=== PATIENT | male | born 1940 | race Caucasian/White ===

== ENCOUNTER → 2016-05-07 | Outpatient (CLI) | payer MEDICARE ==
--- NOTE | 2016-05-07 15:07 | XR ---
EXAMINATION TYPE: XR chest 2V DATE OF EXAM: 05/07/2016 3:02 PM COMPARISON: Chest x-ray November 30, 2012 and more recent study March 09, 2016 HISTORY: Cough. TECHNIQUE: Frontal and lateral views of the chest are obtained. FINDINGS: There is some chronic parenchymal change without suspicious focal air space opacity, pleur al effusion, or pneumothorax seen. The cardiac silhouette size is within normal limits with atherosc lerotic aorta. The osseous structures are somewhat demineralized slight scoliotic curvature and mul tilevel spurring and spine redemonstrated IMPRESSION: Chronic emphysematous change without acute pulmonary process. No significant change from prior studies.
== END | disposition home or self-care (01) ==
LOC: RADXRMAIN 14:49
PROVIDERS: ATTEND Internal Medicine
DX: J43.9 Emphysema, unspecified (principal)
CPT/HCPCS: 71020

== ENCOUNTER → 2018-01-20 | Outpatient (CLI) | payer MEDICARE, OTHER ==
--- NOTE | 2018-01-20 11:48 | XR ---
EXAMINATION TYPE: XR ankle complete LT DATE OF EXAM: 01/20/2018 COMPARISON: NONE HISTORY: Pain FINDINGS: Three views of the ankle demonstrate the ankle mortise to be intact and symmetric. The joint spaces are preserved. The osseous structures are intact. Diffuse soft tissue edema. Hypertrophic changes i nvolving the calcaneus. IMPRESSION: 1. No definite acute fracture or dislocation, if symptoms persist follow-up study in 7 to 10 days wou ld be suggested.
--- NOTE | 2018-01-20 11:49 | XR ---
EXAMINATION TYPE: XR foot complete LT DATE OF EXAM: 01/20/2018 COMPARISON: NONE HISTORY: Pain TECHNIQUE: Three views are submitted. FINDINGS: The osseous structures are intact. There is no acute fracture or dislocation. Arthropathy of the f irst MTP joint noted. Calcaneal spur noted. Hammertoe deformities seen. Diffuse soft tissue edema. IMPRESSION: 1. No acute fracture or dislocation. If symptoms persist, follow-up exam in 7 to 10 days could be ob tained.
== END | disposition home or self-care (01) ==
LOC: RADXRMAIN 10:58
PROVIDERS: ATTEND Internal Medicine
DX: M25.572 Pain in left ankle and joints of left foot (principal); S99.912A Unspecified injury of left ankle, initial encounter; S99.922A Unspecified injury of left foot, initial encounter

== ENCOUNTER 2018-08-12 06:30 | Day surgery (SDC) | payer MEDICARE ==
[2018-08-08 14:34] VITALS: BMI 31.5
[~2018-08-12 06:30] MED LIST: LACTATED RINGERS 1,000 ML IV SCH
[2018-08-12 07:06] VITALS: RESP 14; TEMP 98.3
[2018-08-12 07:20] LABS: Glucose,Whole Blood 143 mg/dL (75-99)
[2018-08-12] MEDS ORDERED: PROPOFOL 10 MG/ML 20 ML VIAL IV ONE (07:43)
--- NOTE | 2018-08-12 08:16 | P.PCN ---
Date of Procedure: 08/12/18 Procedure(s) Performed: Procedure: Total colonoscopy. Preoperative diagnosis: Screening for neoplasia. Postoperative diagnosis: Sigmoid diverticulosis with no evidence of acute diverticulitis, strictures, polyps or cancer. Preparation: HalfLytely prep. Sedation: Was provided by anesthesia. Brief clinical history: The patient is a 78-year-old male who is scheduled for this evaluation for screening for neoplasia age being his risk factor. He had a prior exam 10 to 15 years ago. No history of polyps or family history of colon cancer. He has no abdominal complaints, bleeding or anemia. Procedure: With the patient on his left lateral decubitus position and after informed consent and adequate sedation, the perianal area was inspected and it did not show any fissures or fistulas. There were no masses felt on digital rectal examination. The Olympus CFH 190L video colonoscope was then inserted in the rectum in the usual fashion and advanced to the cecum. There were multiple diverticular orifices seen scattered in the sigmoid with no evidence of acute diverticulitis or strictures. The mucosa appeared healthy. No polyps or tumors were seen. I retroflexed the endoscope in the rectum before the endoscope was withdrawn. The patient tolerated the procedure well. Plan: The patient was reassured. Discussed dietary measures. He will follow up with you as planned. At his age, I did not recommend future screening. He will discuss that with you.
[2018-08-12 08:29] VITALS: BP 148/81; PULSE 77
== END 2018-08-12 08:58 | disposition home or self-care (01) ==
LOC: ORWHC2ENDO 06:30
DX: Z12.11 Encounter for screening for malignant neoplasm of colon (principal); I10 Essential (primary) hypertension; E11.9 Type 2 diabetes mellitus without complications; E78.5 Hyperlipidemia, unspecified; M19.90 Unspecified osteoarthritis, unspecified site; F17.210 Nicotine dependence, cigarettes, uncomplicated; Z79.84 Long term (current) use of oral hypoglycemic drugs; Z79.899 Other long term (current) drug therapy; Z88.8 Allergy status to other drugs, medicaments and biological substances
CPT/HCPCS: J2704; G0121

== ENCOUNTER → 2019-04-27 | Outpatient (CLI) | payer MEDICARE ==
--- NOTE | 2019-04-27 12:24 | XR ---
EXAMINATION TYPE: XR shoulder complete RT DATE OF EXAM: 04/27/2019 CLINICAL HISTORY: Pain after lifting injury. TECHNIQUE: Three views of the right shoulder are obtained. COMPARISON: Right shoulder x-ray November 30, 2012. FINDINGS: There is no acute fracture/dislocation evident in the right shoulder. Mild to moderate shaka rowing and spurring of the acromioclavicular joint. Distal acromion morphology unremarkable. Mild to moderate narrowing glenohumeral joint. The visualized ribs are intact and unremarkable. IMPRESSION: There is no acute fracture or dislocation in the right shoulder.
== END | disposition home or self-care (01) ==
LOC: RADXRMAIN 11:58
PROVIDERS: ATTEND Internal Medicine
DX: M25.511 Pain in right shoulder (principal)

== ENCOUNTER → 2019-05-14 | Outpatient (CLI) | payer MEDICARE ==
--- NOTE | 2019-05-14 09:51 | MR ---
EXAMINATION TYPE: MR shoulder RT wo con DATE OF EXAM: 05/14/2019 COMPARISON: X-ray 04/27/2019 HISTORY: Right TECHNIQUE: Multiplanar, multisequence imaging of the right shoulder is performed without contrast. FINDINGS: Exam limited by severe patient motion artifact. There is a small glenohumeral joint effusion. Thicken ing of the inferior glenohumeral ligament appears chronic. Reduced definition of the humeral attachme nt likely is artifactual. Bicipital tendon well situated the bicipital groove. Intracapsular portion of the biceps tendon is in tact. There is arthropathy of the AC joint with impingement supraspinatus tendon and muscle. Along the burs al surface there is scuffing of the supraspinatus and infraspinatus tendons. No through thickness tea r or retraction. Next Intrasubstance signal of the superior labrum suspicious for tear. IMPRESSION: 1. Markedly limited exam due to motion artifact demonstrates impingement and tendinosis of the supras pinatus and infraspinatus tendons with no definite through thickness tear or retraction. 2. SLAP tear
== END | disposition home or self-care (01) ==
LOC: RADMRIMAIN 08:34
PROVIDERS: ATTEND Internal Medicine
DX: S43.431A Superior glenoid labrum lesion of right shoulder, initial encounter (principal); M77.9 Enthesopathy, unspecified

== ENCOUNTER → 2019-09-18 | Outpatient (CLI) | payer MEDICARE ==
[2019-09-18 10:41] LABS: HCT 42.7 % (39.0-53.0); HGB 13.9 gm/dL (13.0-17.5); MCH 30.3 pg (25.0-35.0); MCHC 32.5 g/dL (31.0-37.0); MCV 93.2 fL (80.0-100.0); Mean Platelet Volume 7.7; Platelet Count 340 k/uL (150-450); RBC 4.58 m/uL (4.30-5.90); RDW 13.8 % (11.5-15.5); WBC 8.6 k/uL (3.8-10.6)
[2019-09-18 15:29] LABS: African American GFR (CKD) 99.2 (60.0-200.0); Anion Gap 8.7 mmol/L (4.00-12.00); Carbon Dioxide 29.3 mmol/L (21.6-31.8); Non-African American GFR(CKD) 85.6 (60.0-200.0); Potassium 4.4 mmol/L (3.5-5.5)
== END | disposition home or self-care (01) ==
LOC: LABWHC1 09:21
PROVIDERS: ATTEND Internal Medicine Interventional Cardiology
DX: Z01.818 Encounter for other preprocedural examination (principal); I35.0 Nonrheumatic aortic (valve) stenosis; Z11.59 Encounter for screening for other viral diseases
CPT/HCPCS: 36415; 80051; 82565; 84520; 85027; 87635

== ENCOUNTER 2019-09-22 06:00 | Day surgery (SDC) | payer MEDICARE ==
[2019-09-16 16:17] VITALS: BMI 27.5
[~2019-09-22 06:00] MED LIST changes: +ALPRAZolam 0.25 MG TAB PO PRN; +ALPRAZolam 0.5 MG TAB PO PRN; -LACTATED RINGERS 1,000 ML IV SCH; +NITROGLYCERIN SL TABS 0.4 MG TAB SUBLINGUAL PRN; +SODIUM CHLORIDE 0.9% 1,000 ML in EMPTY BAG 1 BAG IV ONE
[2019-09-22 06:30] LABS: Glucose,Whole Blood 175 mg/dL (75-99)
[2019-09-22] MEDS ORDERED: fentaNYL (PF) 50 MCG/ML 2 ML AMP ONE (06:48)
[2019-09-22] MEDS ORDERED: ASPIRIN 325 MG TAB PO ONE (07:00)
[2019-09-22] MEDS: BENZOCAINE SPRAY 1 CAN TOPICAL ONE ×3 (07:02→07:28)
[2019-09-22] MEDS ORDERED: SODIUM CHLORIDE 0.9% 1,000 ML IV ONE (07:06)
[2019-09-22] MEDS ORDERED: MIDAZOLAM 2 MG/2 ML VIAL IVP ONE (07:08)
[2019-09-22] MEDS ORDERED: fentaNYL (PF) 50 MCG/ML 2 ML AMP IVP ONE (07:08)
[2019-09-22] MEDS ORDERED: LIDOCAINE 1% INJ 10MG/ML (20 ML MDV) ONE (07:14)
[2019-09-22] MEDS ORDERED: VERAPAMIL 2.5 MG/ML 2 ML AMP ONE (07:39)
[2019-09-22] MEDS ORDERED: LIDOCAINE 1% INJ 10MG/ML (20 ML MDV) SQ ONE (07:52)
[2019-09-22] MEDS ORDERED: VERAPAMIL SYRINGE (5 MG/10 ML) INTRAARTER ONE (07:56)
[2019-09-22] MEDS ORDERED: HEPARIN SODIUM 1,000 UN/ML (10ML VL) IV ONE (08:08)
[2019-09-22] MEDS ORDERED: CLOPIDOGREL 75 MG TAB ONE (08:09)
[2019-09-22] MEDS ORDERED: CLOPIDOGREL 75 MG TAB PO ONE (08:11)
[2019-09-22] MEDS ORDERED: IOPAMIDOL-370 125ML BTL INJ ONE (08:23)
[2019-09-22] MEDS ORDERED: IOPAMIDOL-370 100ML BTL INJ ONE (08:45)
[2019-09-22] MEDS ORDERED: ATROPINE SULFATE 0.1 MG/ML 10ML SYRINGE IV PRN (08:55)
[2019-09-22] MEDS ORDERED: ZOLPIDEM 5 MG TAB PO PRN (08:55)
[2019-09-22] MEDS ORDERED: MAG HYDROX/AL HYDROX/SIMETH 30 ML CUP PO PRN (08:55)
[2019-09-22] MEDS ORDERED: RX INFO: IV CONTRAST WAS GIVEN 1 EACH MISC MISCELLANE PRN (08:55)
[2019-09-22] MEDS ORDERED: NITROGLYCERIN SL TABS 0.4 MG TAB SUBLINGUAL PRN (08:55)
[2019-09-22] MEDS ORDERED: SODIUM CHLORIDE 0.9% 1,000 ML IV SCH (09:00)
--- NOTE | 2019-09-22 09:40 | ECHOT ---
TRANSESOPHAGEAL ECHOCARDIOGRAM INDICATION: Evaluation of aorta. PROCEDURE: After explaining the procedure to the patient, its risks and the complications, his blood pressure, heart rate, O2 saturation was monitored. The throat was sprayed with Cetacaine. He received 2 mg intravenous Versed, 50 mcg intravenous fentanyl. The probe was in the esophagus without difficulty. Images were obtained. Following that, the probe was removed there was no immediate complication. FINDINGS: Left atrial size is mildly dilated. Left atrial appendage is normal. Left ventricular size and systolic function are normal. The aortic valve is a tricuspid valve calcified with reduced opening by planimetry the valve area is 1.2 cm2. The mitral valve revealed mild calcification. Tricuspid valve is normal , descending thoracic aorta revealed mild atherosclerotic changes. No pericardial effusion was noted . Contrast bubble study revealed no shunting across the interatrial septum with Valsalva maneuver. Doppler pulse wave and color Doppler obtained and revealed a mild to moderate mitral with mild tricuspid and aortic regurgitation. The peak gradient across the aortic valve was 74 mmHg with a mean of 61 mmHg .No shunting by color Doppler study was noted. CONCLUSION: 1. Normal size LV and systolic function. 2. Dilated left atrium. 3. Severe aortic stenosis with mild aortic regurgitation. 4. Mild to moderate mitral with mild tricuspid regurgitation. 5. 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 6. Mild atherosclerotic changes of the descending thoracic aorta. MMODL / IJN: [id number] / MAUREEN
--- NOTE | 2019-09-22 10:52 | CC ---
CARDIAC CATHETERIZATION REPORT Mr. Garcia is a 79-year-old male with known history of hypertension, hyperlipidemia, diabetes mellitus and chronic tobacco use. He has been complaining of progressive dyspnea on exertion. He was found to have evidence of significant aortic stenosis. In view of that, recommendation made regarding cardiac catheterization. The procedures, risks, and complication were discussed with the patient who is in full understanding and agreement. PROCEDURE: Patient was brought to cathode ray tube assembler in the fasting semi-sedated state after receiving fentanyl and Benadryl and achieving moderate conscious sedated state. Using Xylocaine anesthesia and Seldinger technique, a 6-Finnish sheath was introduced in the right radial artery. Attempt to exchange the right brachial Angiocath over a wire were unsuccessful because of a kink in the angiocath that was removed and pressures were deployed. Following that, selective right and left coronary angiography performed using 5-Finnish 3.5 bend right and left Kal catheter. Multiple views of the coronary artery including hemiaxial views were obtained. The right Kal catheter was used to cross the aortic valve and left ventricular end-diastolic pressure was calculated. Following that, catheter were removed, images were reviewed. FLUOROSCOPY: There was significant calcification involving the aortic valve as well as the right coronary artery. LEFT MAIN: This is a large-sized vessel, bifurcating into left circumflex, left insular artery. Left main coronary artery has no evidence of high-grade stenosis. LEFT ANTERIOR DESCENDING ARTERY: This is a large-sized vessel, reaching toward the apex with a wraparound apex segment. Giving rise to a large diagonal branch. Left anterior descending artery after the diagonal branch has a calcified segment with about 30% plaque. The rest of the vessel has no high-grade stenosis. LEFT CIRCUMFLEX: This is a nondominant vessel, moderate in caliber, giving rise to three obtuse marginal branch of moderate caliber. The first one is very proximal. The left circumflex as well as branches have no evidence of obstructive coronary artery disease. RIGHT CORONARY ARTERY: This is a large dominant vessel, bifurcating distally into PDA and posterolateral segment and branches. The right coronary artery in mid segment has a 30% to 40% stenosis and a larger PLV that has a 90% stenosis. The rest of the vessel has no high-grade stenosis. LEFT VENTRICULOGRAM: Left ventricular was not performed. HEMODYNAMICS: The left ventricular end-diastolic pressure was 10-14 mmHg. Left ventricle arm systolic pressure was 180. An ascending aortic systolic pressure was 140 with a peak gradient of 40 mmHg. CONCLUSION: 1. Calcified aortic valve and coronary artery. 2. Significant obstructive disease involving the large right PLV. 3. Mild to moderate disease in the mid LAD. RECOMMENDATION: In view of the finding anatomy, I recommend proceeding with angioplasty and stenting of the right PLV and subsequently evaluate the patient for transaortic valve replacement. Those findings and recommendation were discussed with the patient, who is in full understanding and agreement. MMODL / IJN: [id number] /
[2019-09-22] MEDS ORDERED: HYDROmorphone 1 MG/ML 1 ML SYRINGE ONE (15:34)
--- NOTE | 2019-09-22 15:38 | PTCA ---
PERCUTANEOUSTRANS CORORONARY ANGIOGRAPHY Mr. Garcia is a 79-year-old male with a known history of hypertension, hyperlipidemia, diabetes mellitus, who had evidence of aortic stenosis, underwent cardiac catheterization, was found to have critical stenosis involving the large right PLV. Recommendation made regarding angioplasty and stenting. The procedures, risks, and complication were discussed with the patient who is in full understanding and agreement. PROCEDURE: A 6-Surinamese FR4 guiding catheter introduced into the system, after cannulating the right coronary ostium, a 0.014 balanced medium weight J-wire was advanced across the lesion, positioned distally in the right PLV. Subsequently, a 3.0 x 12 mm Trek balloon was advanced and one inflation at 10 atmospheres was done. Following that, a 3.5 x 18 mm Xience Melinda stent was deployed, post dilated at 16 atmospheres after the last inflation, after appropriate wait, the balloon and the guidewire were withdrawn back in the guiding catheter. Images were obtained and repeated. Those images reveal stable successful stenting. At that point, the guiding catheter, the balloon and the guidewire were removed. The sheath was removed. Hemostasis was obtained from a TR band. There was no immediate complication. Patient was returned to his room in stable condition. Of note, the patient had no chest discomfort, but he had mild EKG changes that resulted in procedure. He received a total of 8000 units of intravenous heparin as well as intra-arterial verapamil. His ACT was followed. RESULTS: Successful stenting of the large right PLV with reduction of stenosis from 90% to 0%. RECOMMENDATION: Patient will be continued on aspirin, Plavix and statin. The importance of dual antiplatelet treatment were discussed with the patient and his family and they are in full understanding and agreement. The patient will be evaluated for transaortic valve replacement. Those findings and recommendation were discussed with the patient and his family who are in full understanding and agreement. DURATION OF PROCEDURE: 46 minutes. MMODL / IJN: [id number] /
--- NOTE | 2019-09-22 15:44 | LTR ---
DATE OF SERVICE: 09/22/2019 RE: Kenny Torre Dear Dr. Peng; I had the pleasure to perform cardiac catheterization and transesophageal echocardiogram on Mr. Gracia at [facility] on September 22, 2019 and a fully copy of the procedure note will be forwarded to you. In brief, he was found to have severe aortic stenosis with critical stenosis involving the right PLV. He underwent successful stenting of his right PLV using a drug-eluting stent and he will be evaluated down the road to undergo transaortic valve replacement. I will keep you updated on his progress and thank you again for allowing me to participate in this patient's care. Please feel free to call for any questions. Sincerely yours, MD GARRET Hendrix / BRYAN: [id number] /
[2019-09-22] MEDS ORDERED: amLODIPine 5 MG TAB PO SCH (17:30)
[2019-09-22 17:47] LABS: Glucose,Whole Blood 193 mg/dL (75-99)
[2019-09-22] MEDS: Rosuvastatin Calcium [Crestor] 5 MG PO SCH (19:42)
[2019-09-22] MEDS: MULTIVITAMINS, THERA 1 EACH TAB PO SCH (19:42)
[2019-09-22 20:34] LABS: Glucose,Whole Blood 126 mg/dL (75-99)
[2019-09-22] MEDS ORDERED: LISINOPRIL 20 MG TAB PO SCH (21:00)
[2019-09-22] MEDS: NICOTINE 21MG/24HR PATCH TRANSDERM SCH (21:28)
[2019-09-23 05:51] VITALS: RESP 16
[2019-09-23 06:09] LABS: Glucose,Whole Blood 130 mg/dL (75-99)
[2019-09-23 08:00] LABS: African American GFR (CKD) >90 (>60 ml/min/1.73 sqM); Anion Gap 5 mmol/L; Blood Urea Nitrogen 11 mg/dL (9-20); Carbon Dioxide 27 mmol/L (22-30); Chloride 103 mmol/L (98-107); Glucose 137 mg/dL (74-99); Non-African American GFR(CKD) >90 (>60 ml/min/1.73 sqM); Potassium 4.2 mmol/L (3.5-5.1); Sodium 135 mmol/L (137-145)
[2019-09-23 08:32] VITALS: BP 117/65; PULSE 76; TEMP 97.6
[2019-09-23] MEDS: Rosuvastatin Calcium [Crestor] 5 MG PO SCH (08:38)
[2019-09-23] MEDS: MULTIVITAMINS, THERA 1 EACH TAB PO SCH (08:38)
[2019-09-23] MEDS: NICOTINE 21MG/24HR PATCH TRANSDERM SCH (08:38)
[2019-09-23] MEDS ORDERED: CLOPIDOGREL 75 MG TAB PO SCH (09:00)
[2019-09-23] MEDS ORDERED: ASPIRIN 81 MG PO SCH (09:00)
--- NOTE | 2019-09-23 09:26 | PN ---
PROGRESS NOTE Mr. Garcia is a 79-year-old male with known history of diabetes, hypertension, hyperlipidemia, who was found to have severe aortic stenosis, underwent cardiac catheterization yesterday, was found to have severe stenosis in a large right PLV and underwent stenting of that vessel. He is doing well this morning, denying any chest pain, his breathing has been stable. He denies any dizziness or palpitation. He continues on aspirin once a day, Plavix 75 mg daily, lisinopril 40 mg daily, rosuvastatin 5 mg daily, amlodipine 5 mg daily. PHYSICAL EXAMINATION: Blood pressure 129/60 with a heart rate in the 70s. LUNGS: Clear. HEART: Regular rate and rhythm, S1, S2. No S3 with systolic ejection murmur, 3/6 heard at the base, no diastolic murmur, no rub. ABDOMEN: Soft, nontender. EXTREMITIES: No edema. Right radial pulse intact. EKG revealed no acute changes. IMPRESSION: 1. Coronary disease with stenting of the right PLV. 2. Severe aortic stenosis. 3. Hypertension. 4. Hyperlipidemia. 5. Diabetes mellitus. 6. History of chronic tobacco use. RECOMMENDATION: Patient will be discharged home today and followed as an outpatient for evaluation for transaortic valve replacement. MMODL / IJN: [id number] /
[2019-09-28] MEDS ORDERED: ERGOCALCIFEROL 50,000 UNIT CAP PO SCH (09:00)
== END 2019-09-23 09:26 | disposition home or self-care (01) ==
LOC: CATHCVL 06:00 → 3SCARD 08:38 → CATHCVL 09-23 09:26
PROVIDERS: ATTEND Internal Medicine Interventional Cardiology
DX: I25.10 Atherosclerotic heart disease of native coronary artery without angina pectoris (principal); I08.2 Rheumatic disorders of both aortic and tricuspid valves; I25.3 Aneurysm of heart; I70.0 Atherosclerosis of aorta; I10 Essential (primary) hypertension; E78.2 Mixed hyperlipidemia; E11.9 Type 2 diabetes mellitus without complications; Z87.891 Personal history of nicotine dependence; Z95.5 Presence of coronary angioplasty implant and graft; Z79.82 Long term (current) use of aspirin; Z79.02 Long term (current) use of antithrombotics/antiplatelets; Z79.899 Other long term (current) drug therapy; Z88.8 Allergy status to other drugs, medicaments and biological substances; M19.90 Unspecified osteoarthritis, unspecified site; Z98.890 Other specified postprocedural states; Z98.49 Cataract extraction status, unspecified eye
CPT/HCPCS: 93312; 93320; 93325; 93458; 85347; 80048; C9600; C1769 ×3; C1887; C1725; C1751; C1874; C1894; S4990 ×2; J2250; J2001; J3010; J1644; Q9967 ×2

== ENCOUNTER 2022-02-22 21:27 | Inpatient (IN) | payer MEDICARE ==
--- NOTE | 2022-02-22 21:36 | ED ---
Altered Mental Status HPI - General Stated Complaint: Altered Mental Status Time Seen by Provider: 02/22/22 21:34 Source: RN notes reviewed, old records reviewed, Caregiver Mode of arrival: EMS Limitations: altered mental status, physical limitation - History of Present Illness Initial Comments: This is an 81-year-old male DF for evaluation patient is a poor strain secondary to clinical state was apparently acting normal yesterday per family today patient has not been breathing well and been altered patient was found to be significantly hypoxic by EMS patient is a poor strain again to clinical state. History of presented by EMS and patient's family MD Complaint: altered mental status, confusion, decreased responsiveness, weakness -: unknown Severity: moderate Consistency of Symptoms: getting worse Context: COPD Associated Symptoms: cough, malaise, shortness of breath, weakness Treatments Prior to Arrival: oxygen - Related Data Home Medications Medication Instructions Recorded Confirmed Aspirin [Adult Low Dose Aspirin EC] 81 mg PO DAILY 08/08/18 09/22/19 Ergocalciferol (Vitamin D2) 50,000 unit PO MO 08/08/18 09/22/19 [Vitamin D2] Multivit-Min/FA/Lycopen/Lutein 1 each PO DAILY 08/08/18 09/22/19 [Centrum Silver Tablet] Rosuvastatin Calcium [Crestor] 5 mg PO QAM 08/08/18 09/22/19 amLODIPine [Norvasc] 5 mg PO W/SUPPER 08/08/18 09/22/19 metFORMIN HCL [Glucophage] 1,000 mg PO BID 08/08/18 09/22/19 ramipriL [Altace] 10 mg PO HS 09/16/19 09/22/19 Previous Rx's Medication Instructions Recorded Clopidogrel [Plavix] 75 mg PO DAILY #90 tab 09/23/19 Nitroglycerin Sl Tabs [Nitrostat] 0.4 mg SUBLINGUAL Q5M PRN #25 tab 09/23/19 Allergies Allergy/AdvReac Type Severity Reaction Status Date / Time Yfjqqqk-FVD-NtA Reductase Allergy Chest Pain Verified 09/22/19 07:00 Inhibitor [Hbrvtol-Tep-Ztx Reductase Inhibitor] Review of Systems ROS Statement: Those systems with pertinent positive or pertinent negative responses have been documented in the HPI. ROS Other: All systems not noted in ROS Statement are negative. Past Medical History Past Medical History: Diabetes Mellitus, Hyperlipidemia, Hypertension, Osteoarthritis (OA) Additional Past Medical History / Comment(s): arthritis in back from previous fx , valve problem per pt., kidney stones History of Any Multi-Drug Resistant Organisms: None Reported Past Surgical History: Hernia Repair, Orthopedic Surgery, Tonsillectomy Additional Past Surgical History / Comment(s): surgery on two fingers left hand, adali cataracts Past Anesthesia/Blood Transfusion Reactions: No Reported Reaction Past Psychological History: Depression Past Alcohol Use History: Occasional Additional Past Alcohol Use History / Comment(s): smokes 1 1/2 PPD, has smoked since age 15 Past Drug Use History: None Reported - Past Family History Mother Family Medical History: No Reported History General Exam Limitations: altered mental status General appearance: alert, lethargic, obtunded, in distress, cachectic Head exam: Present: atraumatic, normocephalic, normal inspection Eye exam: Present: normal appearance, PERRL, EOMI. Absent: scleral icterus, conjunctival injection, periorbital swelling ENT exam: Present: normal exam, mucous membranes dry Neck exam: Present: normal inspection. Absent: tenderness, meningismus, lymphadenopathy Respiratory exam: Present: normal lung sounds bilaterally, respiratory distress, wheezes, accessory muscle use, prolonged expiratory. Absent: rales, rhonchi, stridor Cardiovascular Exam: Present: regular rate, normal rhythm, normal heart sounds. Absent: systolic murmur, diastolic murmur, rubs, gallop, clicks GI/Abdominal exam: Present: soft, normal bowel sounds. Absent: distended, tenderness, guarding, rebound, rigid Extremities exam: Present: normal inspection, full ROM, normal capillary refill. Absent: tenderness, pedal edema, joint swelling, calf tenderness Back exam: Present: normal inspection Neurological exam: Present: alert, oriented X3, CN II-XII intact Psychiatric exam: Present: normal affect, normal mood Skin exam: Present: warm, dry, intact, normal color. Absent: rash Course Vital Signs 02/22/22 02/22/22 02/22/22 21:36 21:40 22:08 Temperature 98.8 F Pulse Rate 94 93 Respiratory 24 24 Rate Blood Pressure 157/80 O2 Sat by Pulse 98 Oximetry 02/22/22 02/22/22 22:15 22:58 Temperature Pulse Rate 93 96 Respiratory 26 H Rate Blood Pressure 165/86 O2 Sat by Pulse 99 Oximetry - Reevaluation(s) Reevaluation #1: 02/22/22 23:53 Medical record is reviewed Reevaluation #2: 02/22/22 23:53 Patient family informed of results and questions answered Reevaluation #3: 02/22/22 23:53 Patient oxygen is improved mental status has not changed - Consultations Consultation #1: Spoke with Dr. Peng who will admit this patient Medical Decision Making - Medical Decision Making 81 male D to the emergency department F for evaluation. Patient complaining severe distress unresponsive severely low oxygen which is a sudden change from yesterday. Patient is found to have significant pneumonia is placed on antibi otics supportive care supportive oxygen with improvement pulse ox no change in mental status - Lab Data Result diagrams: 02/22/22 21:44 02/22/22 21:44 Lab Results 02/22/22 02/22/22 02/22/22 Range/Units 21:44 21:44 21:44 WBC 10.8 H (3.8-10.6) k/uL RBC 4.33 (4.30-5.90) m/uL Hgb 12.3 L (13.0-17.5) gm/dL Hct 38.7 L (39.0-53.0) % MCV 89.2 (80.0-100.0) fL MCH 28.3 (25.0-35.0) pg MCHC 31.8 (31.0-37.0) g/dL RDW 16.4 H (11.5-15.5) % Plt Count 231 (150-450) k/uL MPV 8.3 Neutrophils % 83 % Lymphocytes % 5 % Monocytes % 9 % Eosinophils % 0 % Basophils % 0 % Neutrophils # 9.0 H (1.3-7.7) k/uL Lymphocytes # 0.6 L (1.0-4.8) k/uL Monocytes # 1.0 (0-1.0) k/uL Eosinophils # 0.0 (0-0.7) k/uL Basophils # 0.0 (0-0.2) k/uL Hypochromasia Marked Anisocytosis Slight PT 10.8 (9.0-12.0) sec INR 1.0 (<1.2) APTT 21.6 L (22.0-30.0) sec Sodium 135 L (137-145) mmol/L Potassium 5.8 H (3.5-5.1) mmol/L Chloride 96 L (98-107) mmol/L Carbon Dioxide 32 H (22-30) mmol/L Anion Gap 7 mmol/L BUN 32 H (9-20) mg/dL Creatinine 0.66 (0.66-1.25) mg/dL Est GFR (CKD-EPI)AfAm >90 (>60 ml/min/1.73 sqM) Est GFR (CKD-EPI)NonAf >90 (>60 ml/min/1.73 sqM) Glucose 231 H (74-99) mg/dL Plasma Lactic Acid Aurelio (0.7-2.0) mmol/L Calcium 8.2 L (8.4-10.2) mg/dL Phosphorus 5.6 H (2.5-4.5) mg/dL Magnesium 2.0 (1.6-2.3) mg/dL Total Bilirubin 0.4 (0.2-1.3) mg/dL AST 74 H (17-59) U/L ALT 43 (4-49) U/L Alkaline Phosphatase 106 (38-126) U/L Ammonia (<30) umol/L Troponin I (0.000-0.034) ng/mL NT-Pro-B Natriuret Pep pg/mL Total Protein 6.0 L (6.3-8.2) g/dL Albumin 3.8 (3.5-5.0) g/dL Urine Color Urine Appearance (Clear) Urine pH (5.0-8.0) Ur Specific [place] (1.001-1.035) Urine Protein (Negative) Urine Glucose (UA) (Negative) Urine Ketones (Negative) Urine Blood (Negative) Urine Nitrite (Negative) Urine Bilirubin (Negative) Urine Urobilinogen (<2.0) mg/dL Ur Leukocyte Esterase (Negative) Urine RBC (0-5) /hpf Urine WBC (0-5) /hpf Ur Squamous Epith Cells (0-4) /hpf Urine Bacteria (None) /hpf Hyaline Casts (0-2) /lpf Urine Mucus (None) /hpf 02/22/22 02/22/22 02/22/22 Range/Units 21:44 21:44 21:44 WBC (3.8-10.6) k/uL RBC (4.30-5.90) m/uL Hgb (13.0-17.5) gm/dL Hct (39.0-53.0) % MCV (80.0-100.0) fL MCH (25.0-35.0) pg MCHC (31.0-37.0) g/dL RDW (11.5-15.5) % Plt Count (150-450) k/uL MPV Neutrophils % % Lymphocytes % % Monocytes % % Eosinophils % % Basophils % % Neutrophils # (1.3-7.7) k/uL Lymphocytes # (1.0-4.8) k/uL Monocytes # (0-1.0) k/uL Eosinophils # (0-0.7) k/uL Basophils # (0-0.2) k/uL Hypochromasia Anisocytosis PT (9.0-12.0) sec INR (<1.2) APTT (22.0-30.0) sec Sodium (137-145) mmol/L Potassium (3.5-5.1) mmol/L Chloride (98-107) mmol/L Carbon Dioxide (22-30) mmol/L Anion Gap mmol/L BUN (9-20) mg/dL Creatinine (0.66-1.25) mg/dL Est GFR (CKD-EPI)AfAm (>60 ml/min/1.73 sqM) Est GFR (CKD-EPI)NonAf (>60 ml/min/1.73 sqM) Glucose (74-99) mg/dL Plasma Lactic Acid Aurelio 1.7 (0.7-2.0) mmol/L Calcium (8.4-10.2) mg/dL Phosphorus (2.5-4.5) mg/dL Magnesium (1.6-2.3) mg/dL Total Bilirubin (0.2-1.3) mg/dL AST (17-59) U/L ALT (4-49) U/L Alkaline Phosphatase (38-126) U/L Ammonia <9 (<30) umol/L Troponin I 0.049 H* (0.000-0.034) ng/mL NT-Pro-B Natriuret Pep 3650 pg/mL Total Protein (6.3-8.2) g/dL Albumin (3.5-5.0) g/dL Urine Color Urine Appearance (Clear) Urine pH (5.0-8.0) Ur Specific [place] (1.001-1.035) Urine Protein (Negative) Urine Glucose (UA) (Negative) Urine Ketones (Negative) Urine Blood (Negative) Urine Nitrite (Negative) Urine Bilirubin (Negative) Urine Urobilinogen (<2.0) mg/dL Ur Leukocyte Esterase (Negative) Urine RBC (0-5) /hpf Urine WBC (0-5) /hpf Ur Squamous Epith Cells (0-4) /hpf Urine Bacteria (None) /hpf Hyaline Casts (0-2) /lpf Urine Mucus (None) /hpf 02/22/22 Range/Units 22:48 WBC (3.8-10.6) k/uL RBC (4.30-5.90) m/uL Hgb (13.0-17.5) gm/dL Hct (39.0-53.0) % MCV (80.0-100.0) fL MCH (25.0-35.0) pg MCHC (31.0-37.0) g/dL RDW (11.5-15.5) % Plt Count (150-450) k/uL MPV Neutrophils % % Lymphocytes % % Monocytes % % Eosinophils % % Basophils % % Neutrophils # (1.3-7.7) k/uL Lymphocytes # (1.0-4.8) k/uL Monocytes # (0-1.0) k/uL Eosinophils # (0-0.7) k/uL Basophils # (0-0.2) k/uL Hypochromasia Anisocytosis PT (9.0-12.0) sec INR (<1.2) APTT (22.0-30.0) sec Sodium (137-145) mmol/L Potassium (3.5-5.1) mmol/L Chloride (98-107) mmol/L Carbon Dioxide (22-30) mmol/L Anion Gap mmol/L BUN (9-20) mg/dL Creatinine (0.66-1.25) mg/dL Est GFR (CKD-EPI)AfAm (>60 ml/min/1.73 sqM) Est GFR (CKD-EPI)NonAf (>60 ml/min/1.73 sqM) Glucose (74-99) mg/dL Plasma Lactic Acid Aurelio (0.7-2.0) mmol/L Calcium (8.4-10.2) mg/dL Phosphorus (2.5-4.5) mg/dL Magnesium (1.6-2.3) mg/dL Total Bilirubin (0.2-1.3) mg/dL AST (17-59) U/L ALT (4-49) U/L Alkaline Phosphatase (38-126) U/L Ammonia (<30) umol/L Troponin I (0.000-0.034) ng/mL NT-Pro-B Natriuret Pep pg/mL Total Protein (6.3-8.2) g/dL Albumin (3.5-5.0) g/dL Urine Color Yellow Urine Appearance Clear (Clear) Urine pH 5.5 (5.0-8.0) Ur Specific [place] 1.018 (1.001-1.035) Urine Protein 1+ H (Negative) Urine Glucose (UA) Trace H (Negative) Urine Ketones Trace H (Negative) Urine Blood Trace H (Negative) Urine Nitrite Negative (Negative) Urine Bilirubin Negative (Negative) Urine Urobilinogen <2.0 (<2.0) mg/dL Ur Leukocyte Esterase Negative (Negative) Urine RBC 3 (0-5) /hpf Urine WBC 3 (0-5) /hpf Ur Squamous Epith Cells 1 (0-4) /hpf Urine Bacteria Rare H (None) /hpf Hyaline Casts 9 H (0-2) /lpf Urine Mucus Rare H (None) /hpf - EKG Data -: EKG Interpreted by Me (EKF shows Afib 99 QRS 86 QTc 383) - Radiology Data Radiology results: report reviewed (Chest x-ray left lower lobe pneumonia infiltrate effusion, CT brain negative), image reviewed Critical Care Time Critical Care Time: Yes Total Critical Care Time: 31 Disposition Clinical Impression: Acute exacerbation of chronic obstructive pulmonary disease, Acute respiratory failure, Community acquired pneumonia, Aspiration pneumonia, Hypoxia, Altered mental status, Do not resuscitate Disposition: ADMITTED IP TO THIS HOSP Condition: Serious Is patient prescribed a controlled substance at d/c from ED?: No Time of Disposition: 23:50
[2022-02-22] MEDS ORDERED: SODIUM CHLORIDE 0.9% 1,000 ML IV STA (21:39)
[2022-02-22] MEDS ORDERED: IPRATROPIUM-ALBUTEROL 3 ML NEB INHALATION STA (21:40)
[2022-02-22 22:02] LABS: Anisocytosis Slight; Basophils % (A) 0 %; Eosinophils % (A) 0 %; HCT 38.7 % (39.0-53.0); HGB 12.3 gm/dL (13.0-17.5); Hypochromasia Marked; Lymphocytes # (A) 0.6 k/uL (1.0-4.8); Lymphocytes % (A) 5 %; MCH 28.3 pg (25.0-35.0); MCHC 31.8 g/dL (31.0-37.0); MCV 89.2 fL (80.0-100.0); Mean Platelet Volume 8.3; Monocytes % (A) 9 %; Neutrophils % (A) 83 %; Platelet Count 231 k/uL (150-450); RBC 4.33 m/uL (4.30-5.90); RDW 16.4 % (11.5-15.5); WBC 10.8 k/uL (3.8-10.6)
--- NOTE | 2022-02-22 22:10 | XR ---
EXAMINATION: XR chest 1V portable: 02/22/2022 9:52 PM CLINICAL INDICATION: hypoxia TECHNIQUE: AP upright portable COMPARISON: 05/07/2016 FINDINGS: Lungs: There is ill-defined dense consolidation throughout the left mid and lower lung zones, associa axel with volume loss, consistent with a clinical diagnosis of multifocal bronchopneumonia with left p leural effusion. The left upper lung zone is also involved, but relatively spared. - The right lung appears well-inflated and predominantly clear. - An element of pulmonary edema may be present, if clinically supported. Pleural spaces: There is no right pleural effusion. No right or left pneumothorax. Mediastinum: The cardiac silhouette is not enlarged. Other: The skeletal structures and soft tissues are negative for acute findings. IMPRESSION: Marked left-sided parenchymal/pleural abnormalities.
[2022-02-22 22:13] LABS: Lactic Acid, Venous 1.7 mmol/L (0.7-2.0)
[2022-02-22 22:14] LABS: ALT 43 U/L (4-49); AST 74 U/L (17-59); African American GFR (CKD) >90 (>60 ml/min/1.73 sqM); Albumin 3.8 g/dL (3.5-5.0); Alkaline Phosphatase 106 U/L (38-126); Anion Gap 7 mmol/L; Blood Urea Nitrogen 32 mg/dL (9-20); Calcium 8.2 mg/dL (8.4-10.2); Carbon Dioxide 32 mmol/L (22-30); Chloride 96 mmol/L (98-107); Glucose 231 mg/dL (74-99); Non-African American GFR(CKD) >90 (>60 ml/min/1.73 sqM); Phosphorus 5.6 mg/dL (2.5-4.5); Potassium 5.8 mmol/L (3.5-5.1); Sodium 135 mmol/L (137-145); Total Bilirubin 0.4 mg/dL (0.2-1.3)
[2022-02-22 22:30] LABS: Prothrombin Time 10.8 sec (9.0-12.0)
[2022-02-22] MEDS ORDERED: SODIUM CHLORIDE 0.9% 1,000 ML IV SCH ×2 (22:30→23:30)
--- NOTE | 2022-02-22 23:01 | CT ---
EXAMINATION TYPE: CT brain wo con DATE OF EXAM: 02/22/2022 COMPARISON: 11/30/2012 HISTORY: ams CT DLP: 1188.4 mGycm Automated exposure control for dose reduction was used. Images of the brain obtained without contrast. There is cerebral cortical atrophy. There is no mass effect or midline shift. No sign of intracranial hemorrhage. There is some hypodensity in the periventricular white matter. The calvarium is intact. The skull base is intact. IMPRESSION: Cerebral atrophy and chronic small vessel ischemia. No acute intracranial abnormality. There is progr ession of the white matter disease compared to old exam.
[2022-02-22 23:06] LABS: Partial Thromboplastin Time 21.6 sec (22.0-30.0)
[2022-02-22 23:21] LABS: Appearance,Urine Clear (Clear); Bacteria,Urine Rare /hpf; Bilirubin,Urine Negative (Negative); Blood,Urine Trace (Negative); Color,Urine Yellow; Glucose,Urine (UA) Trace (Negative); Hyaline Casts,Urine 9 /lpf (0-2); Ketones,Urine Trace (Negative); Leukocyte Esterase,Urine Negative (Negative); Mucus,Urine Rare /hpf; Nitrite,Urine Negative (Negative); PH, Urine 5.5 (5.0-8.0); Protein,Urine 1+ (Negative); RBC,Urine 3 /hpf (0-5); Specific Gravity,Urine 1.018 (1.001-1.035); Squamous Epithelial Cell,Urine 1 /hpf (0-4); Urobilinogen,Urine <2.0 mg/dL (<2.0); WBC,Urine 3 /hpf (0-5)
[2022-02-22] MEDS ORDERED: IPRATROPIUM-ALBUTEROL 3 ML NEB INHALATION PRN (23:30)
[2022-02-22] MEDS ORDERED: AZITHROMYCIN 500 MG in SODIUM CHLORIDE 0.9% 250 ML IVPB STA (23:30)
[2022-02-22] MEDS ORDERED: PNEUMONIA PROTOCOL UTILIZED 1 EACH MISC PO PRN (23:30)
--- NOTE | 2022-02-23 00:38 | CT ---
EXAMINATION TYPE: CT angio chest DATE OF EXAM: 02/22/2022 COMPARISON: None HISTORY: HYPOXIA/AMS CT DLP: 479.2 mGycm Automated exposure control for dose reduction was used. CONTRAST: Performed with IV Contrast, patient injected with 100ML mL of Isovue 370. Images obtained from the thoracic inlet to the diaphragm with the IV contrast. The thoracic vertebra have normal alignment. No compression fracture. There is mild spurring of the v ertebral bodies. Sternum is intact. There are bilateral pleural effusions with lower lobe bilateral pulmonary airspace infiltrate and ate lectasis. Heart is top normal in size. Infiltrates and pleural fluid are worse on the left side. Ther e is normal contrast opacification of the pulmonary arteries. No filling defect. There are bilateral enlarged bronchial lymph nodes up to 1.5 cm. No mediastinal adenopathy. The thoracic aorta is atherom atous. Thoracic aorta measures up to 3.5 cm. No dissection or aneurysm. Upper abdominal soft tissues are intact. There is pulmonary emphysema. There is coarse interstitial density in both lungs. IMPRESSION: No evidence of pulmonary embolism. Bilateral pleural effusions with lower lobe pulmonary consolidation and atelectasis. Pulmonary inters titial fibrosis. Bilateral frontal adenopathy is likely related to pneumonia.
[2022-02-23] MEDS ORDERED: NALOXONE 0.4 MG/ML 1 ML VIAL IV PRN (01:29)
--- NOTE | 2022-02-23 08:03 | XR ---
EXAMINATION TYPE: XR chest 1V portable DATE OF EXAM: 02/23/2022 6:00 AM COMPARISON: Chest radiograph from one day prior. TECHNIQUE: XR chest 1V portable Portable AP radiograph of the chest. CLINICAL INDICATION:Male, 81 years old with history of pneumonia; FINDINGS: Lungs/Pleura: Similar multifocal airspace opacities. No evidence of pneumothorax, there are bilateral pleural effusions. Pulmonary vascularity: Unremarkable. Heart/mediastinum: Cardiomediastinal silhouette is unremarkable. Musculoskeletal: No acute osseous pathology. IMPRESSION: Similar multifocal airspace opacities given patient positioning with associated bilateral pleural eff usions..
[2022-02-23 08:29] VITALS: TEMP 98.8
[2022-02-23 10:02] VITALS: BP 122/55; PULSE 85; RESP 13
[2022-02-23] MEDS ORDERED: DEXTROSE 50% SYRINGE 50 ML IVP PRN ×2 (10:25)
--- NOTE | 2022-02-23 10:32 | P.HPIM ---
History of Present Illness H&P Date: 02/23/22 Chief Complaint: Hypoxia and pneumonia altered mental status This is an 81-year-old male patient who presented to the ER with hypoxia. At this time patient is unresponsive and no family is at bedside so history is obtained from ER records. According to records patient started having difficulty breathing yesterday and upon arrival EMS was found to be hypoxic. Patient does have a past medical history of diabetes mellitus, hyperlipidemia, hypertension, osteoarthritis, depression and nicotine dependence. Head CT was performed showing cerebral atrophy and chronic small vessel ischemia no acute intracranial abnormality there is progression of the white matter disease c ompared to old exam. CTA of the chest performed showing no evidence of pulmonary embolism bilateral pleural effusions with lower lobe pulmonary consolidation and atelectasis pulmonary interstitial fibrosis. Bilateral frontal edema the is likely related to pneumonia. Repeat chest x-ray showed similar multifocal airspace opacities given patient positioning with associated bilateral pleural effusions. Troponin elevated at 0.049, potassium 5.8, creatinine 0.66 and bun 32. According to nursing staff at bedside is a no code. Patient currently on a nonrebreather unresponsive to questions. Current vital signs temp 98.8, heart rate 85, blood pressure 123/54 patient currently on nonrebreather 15 L. At this time patient has been started on IV antibiotics of azithromycin and Rocephin for pneumonia. Pulmonary services will be consulted. Infectious disease service is consulted. COVID-19 ordered. Neurology consulted for altered mental status changes. We'll also order ABGs due to prolonged hypoxia. Patient also noted to have elevated troponin. Repeat troponin ordered cardiology service consulted also 2-D echo ordered. Review of Systems Please refer to HPI otherwise unremarkable Past Medical History Past Medical History: Diabetes Mellitus, Hyperlipidemia, Hypertension, Osteoarthritis (OA) Additional Past Medical History / Comment(s): arthritis in back from previous fx, valve problem per pt., kidney stones History of Any Multi-Drug Resistant Organisms: None Reported Past Surgical History: Hernia Repair, Orthopedic Surgery, Tonsillectomy Additional Past Surgical History / Comment(s): surgery on two fingers left hand, adali cataracts Past Anesthesia/Blood Transfusion Reactions: No Reported Reaction Past Psychological History: Depression Past Alcohol Use History: Occasional Additional Past Alcohol Use History / Comment(s): smokes 1 1/2 PPD, has smoked since age 15 Past Drug Use History: None Reported - Past Family History Mother Family Medical History: No Reported History Medications and Allergies Home Medications Medication Instructions Recorded Confirmed Type Aspirin [Adult Low Dose Aspirin EC] 81 mg PO DAILY 08/08/18 09/22/19 History Ergocalciferol (Vitamin D2) 50,000 unit PO MO 08/08/18 09/22/19 History [Vitamin D2] Multivit-Min/FA/Lycopen/Lutein 1 each PO DAILY 08/08/18 09/22/19 History [Centrum Silver Tablet] Rosuvastatin Calcium [Crestor] 5 mg PO QAM 08/08/18 09/22/19 History amLODIPine [Norvasc] 5 mg PO W/SUPPER 08/08/18 09/22/19 History metFORMIN HCL [Glucophage] 1,000 mg PO BID 08/08/18 09/22/19 History ramipriL [Altace] 10 mg PO HS 09/16/19 09/22/19 History Clopidogrel [Plavix] 75 mg PO DAILY #90 tab 09/23/19 Rx Nitroglycerin Sl Tabs [Nitrostat] 0.4 mg SUBLINGUAL Q5M PRN #25 tab 09/23/19 Rx Allergies Allergy/AdvReac Type Severity Reaction Status Date / Time Vxzgeto-WGF-NoG Reductase Allergy Chest Pain Verified 09/22/19 07:00 Inhibitor [Tsasjsn-Mrp-Zzl Reductase Inhibitor] Physical Exam Vitals: Vital Signs Temp Pulse Resp BP Pulse Ox 02/23/22 10:00 85 13 122/55 97 02/23/22 09:00 83 17 117/55 98 02/23/22 08:00 83 30 H 120/53 96 02/23/22 06:54 89 28 H 100/52 96 02/23/22 03:01 85 28 H 123/54 98 02/22/22 22:58 96 26 H 165/86 99 02/22/22 22:15 93 02/22/22 22:08 93 02/22/22 21:40 24 02/22/22 21:36 98.8 F 94 24 157/80 98 Intake and Output 02/22/22 02/23/22 02/23/22 22:59 06:59 14:59 Other: Weight 81.647 kg Head normocephalic Neck supple Lungs diminished bilateral lung sounds with crackles Heart regular rate and rhythm S1-S2, no rub or gallop Abdomen is soft nontender nondistended positive bowel sounds no hepatosplenomegaly Extremities +1 bilateral lower extremity pitting edema Neuro lethargic Results CBC & Chem 7: 02/22/22 21:44 02/22/22 21:44 Labs: Abnormal Lab Results - Last 24 Hours (Table) 02/22/22 02/22/22 02/22/22 Range/Units 21:44 21:44 21:44 WBC 10.8 H (3.8-10.6) k/uL Hgb 12.3 L (13.0-17.5) gm/dL Hct 38.7 L (39.0-53.0) % RDW 16.4 H (11.5-15.5) % Neutrophils # 9.0 H (1.3-7.7) k/uL Lymphocytes # 0.6 L (1.0-4.8) k/uL APTT 21.6 L (22.0-30.0) sec Sodium 135 L (137-145) mmol/L Potassium 5.8 H (3.5-5.1) mmol/L Chloride 96 L (98-107) mmol/L Carbon Dioxide 32 H (22-30) mmol/L BUN 32 H (9-20) mg/dL Glucose 231 H (74-99) mg/dL Calcium 8.2 L (8.4-10.2) mg/dL Phosphorus 5.6 H (2.5-4.5) mg/dL AST 74 H (17-59) U/L Troponin I (0.000-0.034) ng/mL Total Protein 6.0 L (6.3-8.2) g/dL Urine Protein (Negative) Urine Glucose (UA) (Negative) Urine Ketones (Negative) Urine Blood (Negative) Urine Bacteria (None) /hpf Hyaline Casts (0-2) /lpf Urine Mucus (None) /hpf 02/22/22 02/22/22 Range/Units 21:44 22:48 WBC (3.8-10.6) k/uL Hgb (13.0-17.5) gm/dL Hct (39.0-53.0) % RDW (11.5-15.5) % Neutrophils # (1.3-7.7) k/uL Lymphocytes # (1.0-4.8) k/uL APTT (22.0-30.0) sec Sodium (137-145) mmol/L Potassium (3.5-5.1) mmol/L Chloride (98-107) mmol/L Carbon Dioxide (22-30) mmol/L BUN (9-20) mg/dL Glucose (74-99) mg/dL Calcium (8.4-10.2) mg/dL Phosphorus (2.5-4.5) mg/dL AST (17-59) U/L Troponin I 0.049 H* (0.000-0.034) ng/mL Total Protein (6.3-8.2) g/dL Urine Protein 1+ H (Negative) Urine Glucose (UA) Trace H (Negative) Urine Ketones Trace H (Negative) Urine Blood Trace H (Negative) Urine Bacteria Rare H (None) /hpf Hyaline Casts 9 H (0-2) /lpf Urine Mucus Rare H (None) /hpf Assessment and Plan Assessment: 1. Hypoxia secondary to pneumonia 2. Altered mental status changes likely secondary to above 3. Elevated troponins 4. History of diabetes mellitus 5. Hyperlipidemia 6. History of osteoarthritis 7. History of essential hypertension 8. Nicotine dependence 9. History of depression DVT prophylaxis Lovenox. GI prophylaxis Protonix Per medical record and patient's nurse patient is a no code Pulmonary, infectious disease, cardiology and neurology services consulted Patient maintained on IV antibiotics ABGs ordered 2-D echo ordered Repeat labs and troponin level ordered Blood and sputum cultures ordered COVID-19 ordered Time with Patient: Greater than 30 (Greater than 60% of the total time spent in counseling and coordination of care)
--- NOTE | 2022-02-23 10:34 | P.CNNES ---
History of Present Illness Consult date: 02/23/22 Requesting physician: Steve Romero Reason for Consult: altered mental status History of Present Illness: This is an 81-year-old gentleman with medical history of hypertension, diabetes mellitus who presented emergency department via EMS because of difficulty breathing and confusion. Some of the history is obtained from medical record that. Per the ED note patient has been the found to be significantly hypoxic. According to the ED nurse, patient continues to be unresponsive with significant nonrebreather requirements. And that nurse notified me that the patient's CODE STATUS is no code. Some other workup during his hospital visit consisted of: On initial presentation his initial vital signs was blood pressure 157/80, heart rate of 94, respiratory of 24, patient and the pulse ox is 98% and he is on non- breather of 15 L. Temperature of 98.8 Fahrenheit Potassium is 5.8, creatinine is 0.66 and the BUN is 32, glucose 231, calcium is 8.2, phosphorus is 5.6, AST 74 and ALT 43. Ammonia is less than 9. CT of the head is reported as cerebral atrophy and chronic small vessel ischemia. No acute intracranial abnormality. There is progression of the white matter disease compared to old exam. I personally reviewed the CT of the head and that was limited because of some motion artifact. But I didn't appreciate any significant acute or subacute ischemia or ventricular hemorrhage. CT angiography of the chest is reported as no evidence of pulmonary embolus. Bilateral pleural effusion with lower lobe pulmonary consolidation and atelectasis. Pulmonary interstitial fibrosis. Bilateral frontal as no past the is related to pneumonia. Review of Systems Review of system: The 12 point system was reviewed and apparent positive and negative per HPI. Past Medical History Past Medical History: Diabetes Mellitus, Hyperlipidemia, Hypertension, Osteoarthritis (OA) Additional Past Medical History / Comment(s): arthritis in back from previous fx, valve problem per pt., kidney stones History of Any Multi-Drug Resistant Organisms: None Reported Past Surgical History: Hernia Repair, Orthopedic Surgery, Tonsillectomy Additional Past Surgical History / Comment(s): surgery on two fingers left hand, adali cataracts Past Anesthesia/Blood Transfusion Reactions: No Reported Reaction Past Psychological History: Depression Past Alcohol Use History: Occasional Additional Past Alcohol Use History / Comment(s): smokes 1 1/2 PPD, has smoked since age 15 Past Drug Use History: None Reported - Past Family History Mother Family Medical History: No Reported History Medications and Allergies Home Medications Medication Instructions Recorded Confirmed Type Aspirin [Adult Low Dose Aspirin EC] 81 mg PO DAILY 08/08/18 02/23/22 History Multivit-Min/FA/Lycopen/Lutein 1 tab PO DAILY 08/08/18 02/23/22 History [Centrum Silver Tablet] Rosuvastatin Calcium [Crestor] 2.5 mg PO QAM 08/08/18 02/23/22 History amLODIPine [Norvasc] 5 mg PO BID 08/08/18 02/23/22 History metFORMIN HCL [Glucophage] 1,000 mg PO AC-BID 08/08/18 02/23/22 History ramipriL [Altace] 10 mg PO BID 09/16/19 02/23/22 History Nitroglycerin Sl Tabs [Nitrostat] 0.4 mg SUBLINGUAL Q5M PRN #25 tab 09/23/19 02/23/22 Rx Ergocalciferol [Vitamin D2 (1250 1,250 mcg PO Q7D 02/23/22 02/23/22 History Mcg = 03171 Iu)] Repaglinide [Prandin] 0.5 mg PO AC-BID@0700,1200 02/23/22 02/23/22 History Repaglinide [Prandin] 1 mg PO AC-SUPPER 02/23/22 02/23/22 History Allergies Allergy/AdvReac Type Severity Reaction Status Date / Time Snrneke-JKB-WdX Reductase Allergy Chest Pain Verified 02/23/22 11:00 Inhibitor [Nxrbail-Khh-Dxo Reductase Inhibitor] Physical Examination - Vital Signs Vital Signs: Vital Signs Temp Pulse Resp BP Pulse Ox 02/23/22 10:00 85 13 122/55 97 02/23/22 09:00 83 17 117/55 98 02/23/22 08:00 83 30 H 120/53 96 02/23/22 06:54 89 28 H 100/52 96 02/23/22 03:01 85 28 H 123/54 98 02/22/22 22:58 96 26 H 165/86 99 02/22/22 22:15 93 02/22/22 22:08 93 02/22/22 21:40 24 02/22/22 21:36 98.8 F 94 24 157/80 98 Intake and Output 02/22/22 02/23/22 02/23/22 22:59 06:59 14:59 Other: Weight 81.647 kg GENERAL: The patient is lying in bed and does not appear in acute distress. CHEST: The heart rate is regular rate rhythm. No murmurs to auscultation. LUNG: Clear to auscultation bilaterally no wheezing noted throughout. Not la bored breathing. ABDOMEN/GI: Bowel sounds present in all 4 quadrants. No tenderness to palpation throughout. NEUROLOGICAL: Higher mental function: The patient is stupor and not verbally responsive and not following commands. He has the non-rebreather on and head is flexed down. Cranial nerves: Eyes are closed and I had to manually open his eyes. Pupils are round and reactive to light. Primary gaze is midline. No facial weakness. Otherwise rest is limited. Motor: The strength is unable to assess because of his condition but has some withdrawal of bilateral uppers to painful stimuli (slightly withdrawal). Decrease tone throughout. Cerebellum: Unable to assess. Sensation: Unable to assess light touch. Reflexes (right/left): 1+ Plantars are mute bilaterally. Results - Laboratory Findings CBC and BMP: 02/22/22 21:44 02/22/22 21:44 Abnormal Lab Findings: Abnormal Labs 02/22/22 02/22/22 02/22/22 21:44 21:44 21:44 WBC 10.8 H Hgb 12.3 L Hct 38.7 L RDW 16.4 H Neutrophils # 9.0 H Lymphocytes # 0.6 L APTT 21.6 L Sodium 135 L Potassium 5.8 H Chloride 96 L Carbon Dioxide 32 H BUN 32 H Glucose 231 H Calcium 8.2 L Phosphorus 5.6 H AST 74 H Troponin I Total Protein 6.0 L Urine Protein Urine Glucose (UA) Urine Ketones Urine Blood Urine Bacteria Hyaline Casts Urine Mucus 02/22/22 02/22/22 21:44 22:48 WBC Hgb Hct RDW Neutrophils # Lymphocytes # APTT Sodium Potassium Chloride Carbon Dioxide BUN Glucose Calcium Phosphorus AST Troponin I 0.049 H* Total Protein Urine Protein 1+ H Urine Glucose (UA) Trace H Urine Ketones Trace H Urine Blood Trace H Urine Bacteria Rare H Hyaline Casts 9 H Urine Mucus Rare H Assessment and Plan Assessment: 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 This does not seem like a seizure-like episode or stroke. I will contact the patient's family to update them from a neurologic perspective. Pulmonary team is consulted Cardiology team is consulted ID team is consulted We'll defer the rest of the medical management to primary team Patient condition appears poor. CODE STATUS: DNI AND DNR. I discussed with the patient's primary team nurse practitioner as well as the patient's nurse. I'll attempt to contact the patient's family. Thank for the consultation UPDATE: I had length discussion with the patient's daughter (who is at bedside) who stated that patient's mentation is alert oriented X4. Resides byself and walks indepently and handles his own ADL's. She Stated that patient last normal was this Saturday night then she went to check on him yesterday () at around 8pm, he was found unresponsive, he was tachypneic and jerking of extremities or seizure-like activity and when EMS arrived to the scene his pulse oxygen was 42% and while in ambulance it was 38%. She suspected he ad hypoxia/respiratory distress for about 24 hours. She denies that patient had seizure or stroke in past. She did wants to hold on any additional testing for now (such as EEG) and did not want CPAP or BiPAP. She is consider hospice care but wants to talk to her family first. If she wants to continue medical management, will obtain routine EEG because of his confusion to assess brain activity. Then later it seems the patient's daughter decided to pursue with comfort care management. Neurology will sign off. Time spend on the case is 40 minutes. Time with Patient: Greater than 30
[2022-02-23 10:51] LABS: ABG Oxygen Saturation 90.1 % (94-97); ABG PO2 72 mmHg (83-108); Allen Test Performed? Yes
[2022-02-23 11:00] LABS: ABG PCO2 >120 mmHg (35-45); ABG PH 7.06 (7.35-7.45)
--- NOTE | 2022-02-23 11:15 | P.CNPUL ---
History of Present Illness Consult date: 02/23/22 Requesting physician: Michael Peng Reason for consult: hypoxemia, other Chief complaint: Anoxic brain injury. History of present illness: Pulmonary/critical care consult dated 02/23/2022. 81-year-old male, that I'm asked to evaluate, in the emergency department. The patient apparently spoke to her friend on Saturday evening, and was apparently fine, and then about 24 hours later, was found at home, unresponsive. Apparently when EMS arrived, the patient had a saturation in the 40s, or high 30s. Oxygen was applied, and the patient was transported to the emergency room to be evaluated. The patient has history of diabetes, hyperlipidemia, hypertension, DJD, previous stent placement, and heart valve surgery. The patient's primary care provider is Dr. Peng. The patient has been seen by neurology, and the neurologist thinks that the patient sustained significant anoxic brain injury, and should be made comfort measures. He thinks the patient's likely outcome is very poor. The patient is not responsive, and his daughter is in the room, giving some history. She clearly states that he would not want anything aggressive done. The patient is a chronic tobacco user, smoking 1-1.5 packs a day since the age of 15. White count is 10.8, hemoglobin 12.3, hematocrit 38.7, and platelet count 231,000. Sodium 135, potassium 5.8, chlorides 96, CO2 32, BUN 32, and creatinine 0.66. Based on the carbon dioxide level of 32, the patient's likely baseline PaCO2 is 56+ or -2 mmHg. The troponin was 0.049. N-terminal proBNP was 3650. Blood gases on 100% showed pO2 of 72, pCO2 of greater than 120, and a pH is 7.06. Brain CT did not show anything acute. Chest x-ray showed a left-sided pneumonic infiltrate, and the patient may have aspirated. Review of Systems REVIEW OF SYSTEMS: CONSTITUTIONAL: [Negative.] NEUROLOGIC: Unresponsive. HEENT: [ Negative.] CARDIAC: [Negative.] PULMONARY: [Negative.] GI: [Negative.] : [Negative.] RHEUMATOLOGIC: [ Negative.] IMMUNOLOGIC: [ Negative.] ENDOCRINE: [Negative. ] DERMATOLOGIC: [Negative.] Past Medical History Past Medical History: Diabetes Mellitus, Hyperlipidemia, Hypertension, Osteoarthritis (OA) Additional Past Medical History / Comment(s): arthritis in back from previous fx, valve problem per pt., kidney stones History of Any Multi-Drug Resistant Organisms: None Reported Past Surgical History: Hernia Repair, Orthopedic Surgery, Tonsillectomy Additional Past Surgical History / Comment(s): surgery on two fingers left hand, adali cataracts Past Anesthesia/Blood Transfusion Reactions: No Reported Reaction Past Psychological History: Depression Past Alcohol Use History: Occasional Additional Past Alcohol Use History / Comment(s): smokes 1 1/2 PPD, has smoked since age 15 Past Drug Use History: None Reported - Past Family History Mother Family Medical History: No Reported History Medications and Allergies Home Medications Medication Instructions Recorded Confirmed Type Aspirin [Adult Low Dose Aspirin EC] 81 mg PO DAILY 08/08/18 09/22/19 History Ergocalciferol (Vitamin D2) 50,000 unit PO MO 08/08/18 09/22/19 History [Vitamin D2] Multivit-Min/FA/Lycopen/Lutein 1 each PO DAILY 08/08/18 09/22/19 History [Centrum Silver Tablet] Rosuvastatin Calcium [Crestor] 5 mg PO QAM 08/08/18 09/22/19 History amLODIPine [Norvasc] 5 mg PO W/SUPPER 08/08/18 09/22/19 History metFORMIN HCL [Glucophage] 1,000 mg PO BID 08/08/18 09/22/19 History ramipriL [Altace] 10 mg PO HS 09/16/19 09/22/19 History Clopidogrel [Plavix] 75 mg PO DAILY #90 tab 09/23/19 Rx Nitroglycerin Sl Tabs [Nitrostat] 0.4 mg SUBLINGUAL Q5M PRN #25 tab 09/23/19 Rx Allergies Allergy/AdvReac Type Severity Reaction Status Date / Time Ublqdrf-HGR-OjF Reductase Allergy Chest Pain Verified 09/22/19 07:00 Inhibitor [Xuektrk-Sfu-Etd Reductase Inhibitor] Physical Exam Osteopathic Statement: *. No significant issues noted on an osteopathic structural exam other than those noted in the History and Physical/Consult. Vitals: Vital Signs Temp Pulse Resp BP Pulse Ox 02/23/22 10:00 85 13 122/55 97 02/23/22 09:00 83 17 117/55 98 02/23/22 08:00 83 30 H 120/53 96 02/23/22 06:54 89 28 H 100/52 96 02/23/22 03:01 85 28 H 123/54 98 02/22/22 22:58 96 26 H 165/86 99 02/22/22 22:15 93 02/22/22 22:08 93 02/22/22 21:40 24 02/22/22 21:36 98.8 F 94 24 157/80 98 Intake and Output 02/22/22 02/23/22 02/23/22 22:59 06:59 14:59 Other: Weight 81.647 kg Tachypnea, unresponsive. HEENT examination is grossly unremarkable. Neck supple. Full range of motion. No adenopathy thyromegaly or neck vein distention. Cardiovascular examination reveals regular rhythm rate. S1-S2 normal. No S3 or S4. No discernible murmur noted. Heart rate 85 bpm. Heart sounds are distant. Lungs reveal scattered coarse rhonchi. No wheezes. Breath sounds equal. Saturations 97% on a nonrebreather. Abdomen soft, without bowel sounds. No masses. Extremities are intact. No cyanosis or clubbing. 1-2+ pitting edema is noted. Skin is without rash or lesion. Neurologic examination reveals an unresponsive 81-year-old male. Results - Laboratory Findings CBC and BMP: 02/22/22 21:44 02/22/22 21:44 PT/INR, D-dimer PT 10.8 sec (9.0-12.0) 02/22/22 21:44 INR 1.0 (<1.2) 02/22/22 21:44 Abnormal lab findings: Abnormal Labs 02/22/22 02/22/22 02/22/22 21:44 21:44 21:44 WBC 10.8 H Hgb 12.3 L Hct 38.7 L RDW 16.4 H Neutrophils # 9.0 H Lymphocytes # 0.6 L APTT 21.6 L Sodium 135 L Potassium 5.8 H Chloride 96 L Carbon Dioxide 32 H BUN 32 H Glucose 231 H Calcium 8.2 L Phosphorus 5.6 H AST 74 H Troponin I Total Protein 6.0 L Urine Protein Urine Glucose (UA) Urine Ketones Urine Blood Urine Bacteria Hyaline Casts Urine Mucus 02/22/22 02/22/22 21:44 22:48 WBC Hgb Hct RDW Neutrophils # Lymphocytes # APTT Sodium Potassium Chloride Carbon Dioxide BUN Glucose Calcium Phosphorus AST Troponin I 0.049 H* Total Protein Urine Protein 1+ H Urine Glucose (UA) Trace H Urine Ketones Trace H Urine Blood Trace H Urine Bacteria Rare H Hyaline Casts 9 H Urine Mucus Rare H - Diagnostic Findings Chest x-ray: image reviewed CT scan - chest: image reviewed Assessment and Plan Assessment: Prolonged anoxia, with possible anoxic brain injury. Probable aspiration pneumonia. History of chronic tobacco use, and probable COPD, with chronic hypercapnic respiratory failure. Acute on chronic hypoxemic and hypercapnic respiratory failure. History of diabetes mellitus. Prior history of heart valve surgery. History of hyperlipidemia. History of hypertension. History of CAD with previous stent placement. History of kidney stones. Chronic tobacco use since age of 15. Plan: Plan dated 02/23/2022. The patient will be placed on BiPAP, with settings of 15/5, and whatever FiO2 achieves a saturation of 90%. In addition, the patient should be placed on anti biotics, for possible aspiration pneumonia. Once we get his CO2 down to his normal level, which is right around 56+ or -2 mmHg, we can better assess the patient's mental status. He may be poorly responsive or unresponsive, because of his worsening hypercapnia. Prognosis is very guarded. Additional recommendations and suggestions are forthcoming. The patient can be admitted to the general medical floor with telemetry. Time with Patient: Greater than 30
[2022-02-23] MEDS ORDERED: INSULIN ASPART (NovoLOG) 100 UNIT/ML VIAL SQ SCH (12:30)
--- NOTE | 2022-02-23 13:07 | CA ---
Transthoracic Echo Report Name: Kenny Garcia Age: 81 Gender: M : 1940 Exam Date: 02/23/2022 10:22 Exam Location: [facility] Ht (in): 69 Wt (lb): 180 Ordering Physician: Michael Peng MD Attending/Referring Phys: Abalone Processor Anna Benton RDCS Procedure CPT: Indications: SHORTNESS OF BREATH Cardiac Hx: Hx of TAVR Technical Quality: Good Contrast 1: Total Dose (mL): Contrast 2: Total Dose (mL): MEASUREMENTS (Male / Female) Normal Values 2D ECHO LV Diastolic Diameter PLAX 4.7 cm 4.2 - 5.9 / 3.9 - 5.3 cm LV Systolic Diameter PLAX 2.9 cm IVS Diastolic Thickness 1.2 cm 0.6 - 1.0 / 0.6 - 0.9 cm LVPW Diastolic Thickness 1.2 cm 0.6 - 1.0 / 0.6 - 0.9 cm LV Relative Wall Thickness 0.5 RV Internal Dim ED PLAX 3.3 cm LVOT Diameter 2.2 cm LA Systolic Diameter LX 4.5 cm 3.0 - 4.0 / 2.7 - 3.8 cm LA Volume 107.2 cm??? 18 - 58 / 22 - 52 cm??? M-MODE Aortic Root Diameter MM 3.5 cm MV E Point Septal Separation 1.3 cm DOPPLER AV Peak Velocity 307.7 cm/s AV Peak Gradient 37.9 mmHg AV Mean Velocity 204.3 cm/s AV Mean Gradient 19.0 mmHg AV Velocity Time Integral 66.4 cm LVOT Peak Velocity 147.5 cm/s LVOT Peak Gradient 8.7 mmHg AV Area Cont Eq pk 1.8 cm??? MV Peak Velocity 197.2 cm/s MV Peak Gradient 15.6 mmHg MV Mean Velocity 126.7 cm/s MV Mean Gradient 7.3 mmHg MV Velocity Time Integral 59.6 cm MV Area PHT 3.5 cm??? Mitral E Point Velocity 174.4 cm/s Mitral A Point Velocity 167.5 cm/s Mitral E to A Ratio 1.0 MV Deceleration Time 219.0 ms TR Peak Velocity 318.1 cm/s TR Peak Gradient 40.5 mmHg Right Ventricular Systolic Press 44.6 mmHg FINDINGS Left Ventricle Left ventricular ejection fraction is estimated at 60-65 %. Left ventricular cavity size normal. Mildly increased septal wall thickness. Right Ventricle Mild right ventricular dilatation. Mild pulmonary hypertension. Right Atrium Normal right atrial size. Left Atrium Mildly increased left atrial diameter. Severely increased left atrial volume. Mildly increased left atrial area. No evidence for an atrial septal defect. Mitral Valve Mitral valve thickened. Mitral annular calcification. Mild mitral regurgitation. There is a gradient on MV 7 mm/Hg Aortic Valve TAVR Hx . Normal functioning AOV with mean gradient of 19 mmHg Tricuspid Valve Mild tricuspid regurgitation. Pulmonic Valve Structurally normal pulmonic valve. Pericardium Normal pericardium. No pericardial effusion. Aorta Normal size aortic root and proximal ascending aorta. CONCLUSIONS Mild LVH with preserved systolic function Dilated left atrium Bioprosthetic aortic valve in stable position Mildly thickened mitral valve leaflets Previewed by: Dr. Jamey Stevens MD (Electronically Signed) Final Date: 23 February 2022 13:07
[2022-02-23] MEDS ORDERED: PIPERACILLIN-TAZOBACTAM 3.375 GM in SODIUM CHLORIDE 0.9% 100 ML IVPB SCH (16:00)
[2022-02-23] MEDS ORDERED: AZITHROMYCIN 500 MG TAB PO SCH (21:00)
[2022-02-24] MEDS ORDERED: PANTOPRAZOLE 40 MG TABLET PO SCH (07:30)
[2022-02-24] MEDS ORDERED: ENOXAPARIN 40 MG/0.4 ML SYRINGE SQ SCH (09:00)
--- NOTE | 2022-02-24 14:11 | P.PN ---
Progress Note - Text Progress Note Date: 02/23/22 Record of family meeting Today I met with patient daughter in ER room 7 patient is unresponsive and is maintained on high flow Oxygen. Need for BiPAP was discussed, and potential need for intubation and mechanical ventilation was discussed Daughter, declined use of BiPAP and declined use of intubation and mechanical ventilation She stated that her father had clear advanced medical directive, and he did not want to have any life support She stated that he was unconscious for at least 24 hours before he was brought into the emergency room and she feared that, he already had extensive neurological abnormality. She requested hospice consultation which will be provided, immediately.
--- NOTE | 2022-02-24 14:14 | P.DS ---
Providers Date of admission: 02/22/22 23:30 Expected date of discharge: 02/24/22 Attending physician: Michael Peng Consults: 02/23/22 01:29 Consult Physician Routine Consulting Provider: Raudel Torres Consult Reason/Comments: ams Do you want consulting provider notified?: Yes 02/23/22 10:05 Consult Physician Routine Consulting Provider: Tara Carpio Consult Reason/Comments: pneumonia Do you want consulting provider notified?: Yes 02/23/22 10:13 Consult Physician Routine Consulting Provider: Chad Nassar Consult Reason/Comments: Elevated troponins Do you want consulting provider notified?: Yes Primary care physician: Michael Peng [facility] Course: Kenny Garcia, is an 81-year-old male who presented to [facility] emergency room after being found unconscious at home, he was evaluated in the emergency room and had evidence of extensive bilateral pneumonia, and bilateral hilar lymphadenopathy, he had evidence of acute hypoxic respiratory failure he was started on high flow oxygen. Patient condition continued to worsen daughter was approached in regard to use of BiPAP and potential need for intubation and mechanical ventilation. Patient's daughter stated that her father did not want any life support he had a clear advanced medical Directive. she requested hospice consult, which was provided. Patient will be admitted to hospice as inpatient Patient Condition at Discharge: Serious Plan - Discharge Summary New Discharge Prescriptions: No Action Multivit-Min/FA/Lycopen/Lutein [Centrum Silver Tablet] 1 tab PO DAILY Aspirin [Adult Low Dose Aspirin EC] 81 mg PO DAILY metFORMIN HCL [Glucophage] 1,000 mg PO AC-BID Rosuvastatin Calcium [Crestor] 2.5 mg PO QAM amLODIPine [Norvasc] 5 mg PO BID ramipriL [Altace] 10 mg PO BID Nitroglycerin Sl Tabs [Nitrostat] 0.4 mg SUBLINGUAL Q5M PRN #25 tab PRN Reason: Chest Pain Repaglinide [Prandin] 0.5 mg PO AC-BID@0700,1200 Repaglinide [Prandin] 1 mg PO AC-SUPPER Ergocalciferol [Vitamin D2 (1250 Mcg = 87117 Iu)] 1,250 mcg PO Q7D Discharge Medication List Aspirin [Adult Low Dose Aspirin EC] 81 mg PO DAILY 08/08/18 [History] Multivit-Min/FA/Lycopen/Lutein [Centrum Silver Tablet] 1 tab PO DAILY 08/08/18 [History] Rosuvastatin Calcium [Crestor] 2.5 mg PO QAM 08/08/18 [History] amLODIPine [Norvasc] 5 mg PO BID 08/08/18 [History] metFORMIN HCL [Glucophage] 1,000 mg PO AC-BID 08/08/18 [History] ramipriL [Altace] 10 mg PO BID 09/16/19 [History] Nitroglycerin Sl Tabs [Nitrostat] 0.4 mg SUBLINGUAL Q5M PRN #25 tab 09/23/19 [Rx] Ergocalciferol [Vitamin D2 (1250 Mcg = 99977 Iu)] 1,250 mcg PO Q7D 02/23/22 [History] Repaglinide [Prandin] 0.5 mg PO AC-BID@0700,1200 02/23/22 [History] Repaglinide [Prandin] 1 mg PO AC-SUPPER 02/23/22 [History] Follow up Appointment(s)/Referral(s): Michael Peng MD [Primary Care Provider] - 1-2 days Discharge Disposition: [facility]
--- NOTE | 2022-03-02 16:15 | P.CONS ---
History of Present Illness - Reason for Consult Consult date: 02/16/22 Pneumonia Requesting physician: Michael Peng - Chief Complaint Unresponsive and shortness of breath x one day - History of Present Illness Patient is a 81-year-old male with past medical history significant for diabetes mellitus hypertension hyperlipidemia the patient was brought into the ER for evaluation of difficulty breathing that her belly started the day b efore presentation to the hospital on arrival to the ER the patient was noticed to be hypoxic and is requiring a nonrebreather, no clear history of any nausea or vomiting reported by the daughter present at the bedside the time of evaluation no history of any abdominal pain and diarrhea no significant cough or sputum production, patient on arrival to the ER was afebrile the patient has been hypoxic currently on a nonrebreather satting 96% patient did have a normal white count with left shift in the first and has been normal liver enzymes and normal, patient did have a chest x-ray with evidence of left-sided bronchopneumonia patient also have a CTU, the chest and some narrowing of the left mainstem bronchus into multiple left pulmonary hilum suspected adenopathy, patient be started on Zosyn concerning for pneumonia. Infectious disease was consulted for further management of anybody therapy mostly information has been pain from review the chart and talking to the daughter was at the bedside the patient is currently not responding and did not provide any history Review of Systems Positive points has been mentioned in HPI complete review could not be obtained because of his underlying mental status Past Medical History Past Medical History: Diabetes Mellitus, Hyperlipidemia, Hypertension, Osteoarthritis (OA) Additional Past Medical History / Comment(s): arthritis in back from previous f x, valve problem per pt., kidney stones History of Any Multi-Drug Resistant Organisms: None Reported Past Surgical History: Hernia Repair, Orthopedic Surgery, Tonsillectomy Additional Past Surgical History / Comment(s): surgery on two fingers left hand, adali cataracts Past Anesthesia/Blood Transfusion Reactions: No Reported Reaction Past Psychological History: Depression Past Alcohol Use History: Occasional Additional Past Alcohol Use History / Comment(s): smokes 1 1/2 PPD, has smoked since age 15 Past Drug Use History: None Reported - Past Family History Mother Family Medical History: No Reported History Medications and Allergies Home Medications Medication Instructions Recorded Confirmed Type Aspirin [Adult Low Dose Aspirin EC] 81 mg PO DAILY 08/08/18 02/23/22 History Multivit-Min/FA/Lycopen/Lutein 1 tab PO DAILY 08/08/18 02/23/22 History [Centrum Silver Tablet] Rosuvastatin Calcium [Crestor] 2.5 mg PO QAM 08/08/18 02/23/22 History amLODIPine [Norvasc] 5 mg PO BID 08/08/18 02/23/22 History metFORMIN HCL [Glucophage] 1,000 mg PO AC-BID 08/08/18 02/23/22 History ramipriL [Altace] 10 mg PO BID 09/16/19 02/23/22 History Nitroglycerin Sl Tabs [Nitrostat] 0.4 mg SUBLINGUAL Q5M PRN #25 tab 09/23/19 02/23/22 Rx Ergocalciferol [Vitamin D2 (1250 1,250 mcg PO Q7D 02/23/22 02/23/22 History Mcg = 89971 Iu)] Repaglinide [Prandin] 0.5 mg PO AC-BID@0700,1200 02/23/22 02/23/22 History Repaglinide [Prandin] 1 mg PO AC-SUPPER 02/23/22 02/23/22 History Allergies Allergy/AdvReac Type Severity Reaction Status Date / Time Lkgwduy-WIA-NuD Reductase AdvReac Chest Pain Verified 03/01/22 08:31 Inhibitor [Vsafjqg-Hkt-Mll Reductase Inhibitor] Physical Exam Vitals: Vital Signs Temp Pulse Resp BP Pulse Ox 02/23/22 10:00 85 13 122/55 97 02/23/22 09:00 83 17 117/55 98 02/23/22 08:00 83 30 H 120/53 96 02/23/22 06:54 89 28 H 100/52 96 02/23/22 03:01 85 28 H 123/54 98 02/22/22 22:58 96 26 H 165/86 99 02/22/22 22:15 93 02/22/22 22:08 93 02/22/22 21:40 24 02/22/22 21:36 98.8 F 94 24 157/80 98 Intake and Output 02/22/22 02/23/22 02/23/22 22:59 06:59 14:59 Other: Weight 81.647 kg GENERAL DESCRIPTION: Elderly male lying in bed, no distress. No tachypnea or accessory muscle of respiration use. HEENT: Shows Pallor , no scleral icterus. Oral mucous membrane is dry. No pharyngeal erythema or thrush NECK: Trachea central, no thyromegaly. LUNGS: Unlabored breathing. Decreased breath sound the bases. No wheeze or crackle. HEART: S1, S2, regular rate and rhythm. No loud murmur ABDOMEN: Soft, no tenderness , guarding or rigidity, no organomegaly EXTREMITIES: No edema of feet. SKIN: No rash, no masses palpable. NEUROLOGICAL: The patient is lethargic orientation could not be determined Results CBC & Chem 7: 02/22/22 21:44 02/22/22 21:44 Labs: Abnormal Lab Results - Last 24 Hours (Table) 02/22/22 02/22/22 02/22/22 Range/Units 21:44 21:44 21:44 WBC 10.8 H (3.8-10.6) k/uL Hgb 12.3 L (13.0-17.5) gm/dL Hct 38.7 L (39.0-53.0) % RDW 16.4 H (11.5-15.5) % Neutrophils # 9.0 H (1.3-7.7) k/uL Lymphocytes # 0.6 L (1.0-4.8) k/uL APTT 21.6 L (22.0-30.0) sec ABG pH (7.35-7.45) ABG pCO2 (35-45) mmHg ABG pO2 (83-108) mmHg ABG O2 Saturation (94-97) % Sodium 135 L (137-145) mmol/L Potassium 5.8 H (3.5-5.1) mmol/L Chloride 96 L (98-107) mmol/L Carbon Dioxide 32 H (22-30) mmol/L BUN 32 H (9-20) mg/dL Glucose 231 H (74-99) mg/dL Calcium 8.2 L (8.4-10.2) mg/dL Phosphorus 5.6 H (2.5-4.5) mg/dL AST 74 H (17-59) U/L Troponin I (0.000-0.034) ng/mL Total Protein 6.0 L (6.3-8.2) g/dL Urine Protein (Negative) Urine Glucose (UA) (Negative) Urine Ketones (Negative) Urine Blood (Negative) Urine Bacteria (None) /hpf Hyaline Casts (0-2) /lpf Urine Mucus (None) /hpf 02/22/22 02/22/22 02/23/22 Range/Units 21:44 22:48 10:42 WBC (3.8-10.6) k/uL Hgb (13.0-17.5) gm/dL Hct (39.0-53.0) % RDW (11.5-15.5) % Neutrophils # (1.3-7.7) k/uL Lymphocytes # (1.0-4.8) k/uL APTT (22.0-30.0) sec ABG pH 7.06 L* (7.35-7.45) ABG pCO2 >120 H* (35-45) mmHg ABG pO2 72 L (83-108) mmHg ABG O2 Saturation 90.1 L (94-97) % Sodium (137-145) mmol/L Potassium (3.5-5.1) mmol/L Chloride (98-107) mmol/L Carbon Dioxide (22-30) mmol/L BUN (9-20) mg/dL Glucose (74-99) mg/dL Calcium (8.4-10.2) mg/dL Phosphorus (2.5-4.5) mg/dL AST (17-59) U/L Troponin I 0.049 H* (0.000-0.034) ng/mL Total Protein (6.3-8.2) g/dL Urine Protein 1+ H (Negative) Urine Glucose (UA) Trace H (Negative) Urine Ketones Trace H (Negative) Urine Blood Trace H (Negative) Urine Bacteria Rare H (None) /hpf Hyaline Casts 9 H (0-2) /lpf Urine Mucus Rare H (None) /hpf Assessment and Plan (1) Aspiration pneumonia Status: Acute Code(s): J69.0 - PNEUMONITIS DUE TO INHALATION OF FOOD AND VOMIT SNOMED Code(s): 498815091 Plan: 1patient is in the hospital with decreased level of consciousness increasing shortness of breath or significant hypoxemia in this patient noticed to have significant abdominal or the on the chest x-ray as well as CT Derek of the chest concerning for possible tumor and a question of possible postobstructive versus aspiration pneumonia. 2patient to continue with the Zosyn 3.375 g every 8 hours 3sputum for Gram stain and culture check a CRP and a pro-calcitonin We will follow on clinical condition and cultures to further adjust medication if needed Thank you for this consultation will follow this patient with you Time with Patient: Greater than 30
== END 2022-02-23 13:05 | disposition still patient (30) | DRG 177 ==
LOC: EC 21:27 → 3SCARD 23:30
PROVIDERS: ADMIT Internal Medicine; ATTEND Internal Medicine
DX: J69.0 Pneumonitis due to inhalation of food and vomit (principal); G93.41 Metabolic encephalopathy; J96.21 Acute and chronic respiratory failure with hypoxia; J96.22 Acute and chronic respiratory failure with hypercapnia; G93.1 Anoxic brain damage, not elsewhere classified; J44.1 Chronic obstructive pulmonary disease with (acute) exacerbation; J90 Pleural effusion, not elsewhere classified; F17.210 Nicotine dependence, cigarettes, uncomplicated; Z51.5 Encounter for palliative care; Z66 Do not resuscitate; E87.5 Hyperkalemia; E78.5 Hyperlipidemia, unspecified; E11.9 Type 2 diabetes mellitus without complications; F32.A Depression, unspecified; R77.8 Other specified abnormalities of plasma proteins; I10 Essential (primary) hypertension; R59.1 Generalized enlarged lymph nodes; I25.10 Atherosclerotic heart disease of native coronary artery without angina pectoris; J84.10 Pulmonary fibrosis, unspecified; Z79.02 Long term (current) use of antithrombotics/antiplatelets; Z79.82 Long term (current) use of aspirin; Z79.84 Long term (current) use of oral hypoglycemic drugs; Z79.899 Other long term (current) drug therapy; Z87.442 Personal history of urinary calculi; Z95.5 Presence of coronary angioplasty implant and graft; Z88.8 Allergy status to other drugs, medicaments and biological substances
CPT/HCPCS: 36415; 36600; 70450; 71045; 71275; 80053; 81001; 82140; 82805; 83605; 83735; 83880; 84100; 84484; 85025; 85610; 85730; 87040; 93005; 93306; 94640; 96361; 96365; 96366; 96367; 99291

== ENCOUNTER 2022-02-23 13:01 | Inpatient (IN) | payer MEDICAID ==
[2022-02-23] MEDS ORDERED: MORPHINE SULFATE 2 MG/ML SYRINGE IV PRN (13:43)
[2022-02-23] MEDS ORDERED: LORazepam 2 MG/ML INJ IV PRN (13:43)
[2022-02-23] MEDS ORDERED: ARTIFICIAL TEARS-HYPROMELLOSE DROPS 15 ML BTL BOTH EYES PRN (13:43)
[2022-02-23] MEDS ORDERED: ATROPINE OPHTH SOLN 1% 5ML BTL SUBLINGUAL PRN (13:43)
[2022-02-23] MEDS ORDERED: ONDANSETRON 4 MG/2 ML VIAL IVP PRN (13:43)
[2022-02-23] MEDS ORDERED: MORPHINE SULFATE (100 MG/2 ML) 100 MG in SODIUM CHLORIDE 0.9% 100 ML IV SCH (13:45)
[2022-02-23] MEDS ORDERED: SCOPOLAMINE 1 MG/72 HR PATCH TRANSDERM STA (13:46)
[2022-02-23] MEDS ORDERED: ACETAMINOPHEN SUPPOSITORY 650 MG SUPP RECTAL PRN (14:55)
[2022-02-23 16:42] VITALS: RESP 20
[2022-02-23 17:52] VITALS: BP 89/44; PULSE 75; TEMP 98.4
[2022-02-23] MEDS ORDERED: LORazepam 1 MG/0.5 ML VIAL IV PRN (18:10)
--- NOTE | 2022-02-24 14:01 | P.HPIM ---
History of Present Illness H&P Date: 02/24/22 Kenny Garcia, is an 81-year-old male who presented to [facility] after being found unconscious at home, evaluation revealed evidence of extensive bilateral pneumonia, and enlarged hilar lymph nodes, patient had evidence of acute hypoxic respiratory failure he was started on oxygen supplements and IV antibiotic. His condition continued to worsen, patient needed further respiratory support he was started on BiPAP, and consideration were made for intubation and mechanical ventilation. However his daughter, stated that patient did not want any mechanical ventilation, he had clear medical directive. Daughter also refused BiPAP, she asked for hospice consult, which was provided, patient was admitted to inpatient hospice. Past Medical History Past Medical History: Diabetes Mellitus, Hyperlipidemia, Hypertension, Osteoarthritis (OA) Additional Past Medical History / Comment(s): arthritis in back from previous fx, valve problem per pt., kidney stones History of Any Multi-Drug Resistant Organisms: None Reported Past Surgical History: Hernia Repair, Orthopedic Surgery, Tonsillectomy Additional Past Surgical History / Comment(s): surgery on two fingers left hand, adali cataracts Past Anesthesia/Blood Transfusion Reactions: No Reported Reaction Smoking Status: Unknown if ever smoked - Past Family History Mother Family Medical History: No Reported History Medications and Allergies Home Medications Medication Instructions Recorded Confirmed Type Aspirin [Adult Low Dose Aspirin EC] 81 mg PO DAILY 08/08/18 02/23/22 History Multivit-Min/FA/Lycopen/Lutein 1 tab PO DAILY 08/08/18 02/23/22 History [Centrum Silver Tablet] Rosuvastatin Calcium [Crestor] 2.5 mg PO QAM 08/08/18 02/23/22 History amLODIPine [Norvasc] 5 mg PO BID 08/08/18 02/23/22 History metFORMIN HCL [Glucophage] 1,000 mg PO AC-BID 08/08/18 02/23/22 History ramipriL [Altace] 10 mg PO BID 09/16/19 02/23/22 History Nitroglycerin Sl Tabs [Nitrostat] 0.4 mg SUBLINGUAL Q5M PRN #25 tab 09/23/19 02/23/22 Rx Ergocalciferol [Vitamin D2 (1250 1,250 mcg PO Q7D 02/23/22 02/23/22 History Mcg = [id number] Iu)] Repaglinide [Prandin] 0.5 mg PO AC-BID@0700,1200 02/23/22 02/23/22 History Repaglinide [Prandin] 1 mg PO AC-SUPPER 02/23/22 02/23/22 History Allergies Allergy/AdvReac Type Severity Reaction Status Date / Time Pmwpvcx-OJV-ZeZ Reductase Allergy Chest Pain Verified 02/23/22 11:00 Inhibitor [Ogpyamx-Nao-Kwz Reductase Inhibitor] Physical Exam Vitals: Vital Signs Temp Pulse Pulse Resp BP BP Pulse Ox 02/23/22 17:38 92 20 101/42 92 L 02/23/22 17:30 98.4 F 75 22 89/44 76 L 02/23/22 16:41 80 20 105/41 98 02/23/22 16:00 77 28 H 105/41 93 L 02/23/22 15:27 81 27 H 107/49 93 L Intake and Output 02/23/22 02/24/22 02/24/22 22:59 06:59 14:59 Intake Total 9.575 Balance 9.575 Intake: Intake, IV Titration 9.575 Amount Morphine Sulfate (100 mg/ 9.575 2 ml) 100 mg In Sodium Chloride 0.9% 100 ml @ 1 MG/HR 1.02 mls/hr IV . Q24H [facility] Rx#:[id number] In general patient is an responsive in no apparent distress HEENT head normocephalic and atraumatic Neck is supple no JVD no goiter Chest exam reveals scattered crackles bilaterally no wheezing Cardiac exam reveals regular heart sounds S1 and S2 with tachycardia no gallops no murmurs Abdomen is soft nontender no organomegaly Extremity exam reveals no edema no cyanosis or clubbing Thrombosis Risk Factor Assmnt - Choose All That Apply Any of the Below Risk Factors Present?: Yes Each Factor Represents 1 point: Obesity (BMI >25) Each Risk Factor Represents 3 Points: Age 75 years or older Thrombosis Risk Factor Assessment Total Risk Factor Score: 4 Thrombosis Risk Factor Assessment Level: Moderate Risk Assessment and Plan Plan: Acute hypoxic respiratory failure Extensive bilateral pneumonia Bilateral hilar lymphadenopathy Acute mental status changes with unresponsiveness At this time patient is admitted to hospice per family request and per his advanced medical directives He was started on IV morphine drip There is no sign of pain or discomfort or agitation or seizure activity Will follow closely
--- NOTE | 2022-02-24 14:06 | P.DS ---
Providers Date of admission: 02/23/22 13:43 Expected date of discharge: 02/24/22 Attending physician: Michael Peng Primary care physician: Michael Peng [facility] Course: Kenny Garcia, is an 81-year-old male who was admitted to [facility] through emergency room, after presenting with mental status changes with and responsiveness, patient initially was admitted to telemetry floor and started on IV antibiotics, IV fluid, consultation for pulmonary was initiated, patient had evidence of acute hypoxic respiratory failure, his daughter arrived to the hospital and stated that patient has advanced medical directives, she declined intubation mechanical ventilation or BiPAP, consultation for hospice was initiated. Patient was admitted to inpatient hospice, he was started on IV morphine drip, he on 2021 at 18:50 p.m. Patient Condition at Discharge: Serious Plan - Discharge Summary Discharge Rx Participant: No New Discharge Prescriptions: No Action Multivit-Min/FA/Lycopen/Lutein [Centrum Silver Tablet] 1 tab PO DAILY Aspirin [Adult Low Dose Aspirin EC] 81 mg PO DAILY metFORMIN HCL [Glucophage] 1,000 mg PO AC-BID Rosuvastatin Calcium [Crestor] 2.5 mg PO QAM amLODIPine [Norvasc] 5 mg PO BID ramipriL [Altace] 10 mg PO BID Nitroglycerin Sl Tabs [Nitrostat] 0.4 mg SUBLINGUAL Q5M PRN #25 tab PRN Reason: Chest Pain Repaglinide [Prandin] 0.5 mg PO AC-BID@0700,1200 Repaglinide [Prandin] 1 mg PO AC-SUPPER Ergocalciferol [Vitamin D2 (1250 Mcg = 81669 Iu)] 1,250 mcg PO Q7D Discharge Medication List Aspirin [Adult Low Dose Aspirin EC] 81 mg PO DAILY 08/08/18 [History] Multivit-Min/FA/Lycopen/Lutein [Centrum Silver Tablet] 1 tab PO DAILY 08/08/18 [History] Rosuvastatin Calcium [Crestor] 2.5 mg PO QAM 08/08/18 [History] amLODIPine [Norvasc] 5 mg PO BID 08/08/18 [History] metFORMIN HCL [Glucophage] 1,000 mg PO AC-BID 08/08/18 [History] ramipriL [Altace] 10 mg PO BID 09/16/19 [History] Nitroglycerin Sl Tabs [Nitrostat] 0.4 mg SUBLINGUAL Q5M PRN #25 tab 09/23/19 [Rx] Ergocalciferol [Vitamin D2 (1250 Mcg = 57821 Iu)] 1,250 mcg PO Q7D 02/23/22 [History] Repaglinide [Prandin] 0.5 mg PO AC-BID@0700,1200 02/23/22 [History] Repaglinide [Prandin] 1 mg PO AC-SUPPER 02/23/22 [History] Follow up Appointment(s)/Referral(s): Michael Peng MD [Primary Care Provider] - 1 Week Discharge Disposition: - Preliminary Cause of Preliminary Cause of : Acute hypoxic respiratory failure related to pneumonia
== END 2022-02-23 21:55 | disposition expired | DRG 951 ==
LOC: EC 13:01 → 5NMEDONC 13:43 → 6NMEDSUR 16:37
PROVIDERS: ADMIT Internal Medicine; ATTEND Internal Medicine
DX: Z51.5 Encounter for palliative care (principal); J18.9 Pneumonia, unspecified organism; J96.01 Acute respiratory failure with hypoxia; Z66 Do not resuscitate; E11.9 Type 2 diabetes mellitus without complications; E78.5 Hyperlipidemia, unspecified; R59.0 Localized enlarged lymph nodes; M19.90 Unspecified osteoarthritis, unspecified site; I10 Essential (primary) hypertension; Z79.84 Long term (current) use of oral hypoglycemic drugs; Z79.82 Long term (current) use of aspirin; Z79.899 Other long term (current) drug therapy; Z87.442 Personal history of urinary calculi